=== PATIENT | male | born 1975 ===

== ENCOUNTER 2018-10-13 16:14 | Emergency (ER) | payer BC ==
[~2018-10-13] VITALS: Ht 167.6 cm; Wt 59.0 kg
[2018-10-13] MEDS ORDERED: SODIUM CHLORIDE 0.9% 1,000 ML IV ONE (17:04)
[2018-10-13] MEDS ORDERED: MORPHINE SULFATE 4 MG/ML CPJ (NOT FOR IM USE) IV STA (17:04)
[2018-10-13] MEDS ORDERED: KETOROLAC 30MG/ML VIAL IV STA (17:04)
[2018-10-13] MEDS ORDERED: ONDANSETRON HCL 4MG/2ML INJ IV STA (17:04)
[2018-10-13] MEDS ORDERED: GLUCAGON,HUMAN RECOMBINANT 1MG/VIAL IV ONE (17:15)
[2018-10-13 17:46] LABS: CHLORIDE 105 mEq/L (98-107)
[2018-10-13 17:47] LABS: BASOPHILS % 0.6 % (0.0-2.0); EOSINOPHILS % 0.6 % (0.0-5.0); HEMATOCRIT. 42.3 % (42.0-52.0); HEMOGLOBIN. 14.3 g/dL (14.0-18.0); LYMPHOCYTES % 15.1 % (20.0-50.0); MEAN CORPUSCULAR HEMOGLOBIN 28.8 pg (28.0-32.0); MEAN CORPUSCULAR VOLUME 85.5 fL (80.0-94.0); MEAN PLATELET VOLUME 7.9 fl (7.4-10.4); MONOCYTES % 9.5 % (2.0-8.0); NEUTROPHILS % 74.2 % (40.0-76.0); PLATELET 164 x1000/uL (130-400); RED BLOOD CELL COUNT 4.95 mill/uL (4.7-6.1); RED CELL DISTRIBUTION WIDTH 13.1 % (11.6-14.6)
[2018-10-13 18:30] VITALS: BP 142/87
== END 2018-10-13 20:34 | disposition home or self-care (01) ==
LOC: ER 16:14
DX: T18.128A Food in esophagus causing other injury, initial encounter (principal); X58.XXXA Exposure to other specified factors, initial encounter; Y93.89 Activity, other specified; Y92.89 Other specified places as the place of occurrence of the external cause; Y99.8 Other external cause status; Z98.890 Other specified postprocedural states
CPT/HCPCS: 36415; 70360; 71045; 80053; 83690; 84484; 85025; 93005; 96374; 96375; 99284; J1610; J1885; J2270; J2405; J7030